=== PATIENT | male | born 1955 | race African-American/Black ===

== ENCOUNTER 2020-03-04 11:38 | Inpatient (IN) ==
[2020-03-04] MEDS ORDERED: SODIUM CHLORIDE 0.9% 1,000 ML IV STA (12:51)
[2020-03-04] MEDS ORDERED: ONDANSETRON 4 MG/2 ML VIAL IV STA (12:51)
[2020-03-04 13:42] LABS: Basophils # 0.1 10*3/uL (0.0-0.2); Basophils % 0.9 % (0.0-0.8); Hematocrit 47.8 VOL% (42.0-52.0); Hemoglobin 16.9 GM/DL (14.0-18.0); Immature Granulocytes % 0.7 %; Immature Granulocytes Absolute 0.09 #; Lymphocytes # 0.8 10*3/uL (1.4-4.0); Lymphocytes % 6.4 % (21.2-54.2); Mean Corpuscular HGB Conc 35.4 GM/DL (32-36); Mean Corpuscular Volume 88.8 FL (87-102); Mean Platelet Volume 11.7 FL (9.6-12.0); Monocytes % 3.8 % (1.7-12.7); Neutrophils % 88.2 % (38.7-73.9); Platelet Count 129 T/CUMM (130-400); Red Blood Count 5.38 MC/CUMM (3.8-5.5); Red Cell Distribution Width 13.6 % (9.3-17.3); White Blood Count 13.2 T/CUMM (4-12)
[2020-03-04] MEDS ORDERED: LEVOFLOXACIN INJ 500 MG in PREMIX 1 EACH IV STA (14:10)
[2020-03-04] MEDS ORDERED: DEXAMETHASONE 4 MG/1 ML VIAL IV STA (14:10)
[2020-03-04 14:35] LABS: Albumin 2.7 G/DL (3.4-5.0); Bilirubin,Total 1.8 MG/DL (0.2-1.0); Ferritin 3543.2 ng/ml (26-388); Osmolality,Calculated 257.2 MOS/KG (273-304); Total Protein 8.4 G/DL (6.4-8.3)
[2020-03-04] MEDS ORDERED: GLUCAGON 1 MG VIAL IM PRN ×2 (15:32→16:14)
[2020-03-04] MEDS ORDERED: DEXTROSE 50% 25 GM/50 ML VIAL IV PRN ×2 (15:32→16:14)
[2020-03-04] MEDS ORDERED: ACETAMINOPHEN 325 MG TABLET PO PRN (16:14)
[2020-03-04] MEDS ORDERED: INFLUENZA VIRUS VACCINE 0.5 ML SYRINGE IM ONE (17:43)
[2020-03-04] MEDS: SODIUM CHLORIDE 0.9% 1,000 ML IV SCH (18:09)
[2020-03-04] MEDS: ENOXAPARIN 100 MG/ML SYRINGE SUBCUT SCH (18:09)
[2020-03-04] MEDS: AZITHROMYCIN INJ 500 MG in SODIUM CHLORIDE 0.9% 250 ML IV SCH (21:56)
[2020-03-04] MEDS: cefTRIAXone 1,000 MG in SYRINGE 1 EACH IV SCH (21:56)
[2020-03-05] MEDS: SODIUM CHLORIDE 0.9% 1,000 ML IV SCH ×3 (02:41→22:22)
[2020-03-05] MEDS: ENOXAPARIN 100 MG/ML SYRINGE SUBCUT SCH ×2 (04:05→16:10)
[2020-03-05 05:49] LABS: Basophils % 0.1 % (0.0-0.8); Hematocrit 44.9 VOL% (42.0-52.0); Hemoglobin 15.5 GM/DL (14.0-18.0); Immature Granulocytes % 0.8 %; Immature Granulocytes Absolute 0.11 #; Lymphocytes # 0.8 10*3/uL (1.4-4.0); Lymphocytes % 5.4 % (21.2-54.2); Mean Corpuscular HGB Conc 34.5 GM/DL (32-36); Mean Corpuscular Volume 88.7 FL (87-102); Mean Platelet Volume 10.7 FL (9.6-12.0); Neutrophils % 90.7 % (38.7-73.9); Platelet Count 211 T/CUMM (130-400); Red Blood Count 5.06 MC/CUMM (3.8-5.5); Red Cell Distribution Width 13.3 % (9.3-17.3); White Blood Count 13.9 T/CUMM (4-12)
[2020-03-05 06:22] LABS: Lymphocytes 3 % (20-55); Platelet Estimate Adequate; Segmented Neutrophils 95 % (50-85); Total Cells Counted 100
[2020-03-05 06:24] LABS: Calcium 8.5 MG/DL (8.5-10.1); Osmolality,Calculated 274.8 MOS/KG (273-304)
[2020-03-05] MEDS: DEXAMETHASONE 4 MG/1 ML VIAL IV SCH (08:40)
[2020-03-05] MEDS ORDERED: LEVOFLOXACIN INJ 500 MG in PREMIX 1 EACH IV SCH (17:00)
[2020-03-05] MEDS ORDERED: chlorproMAZINE 25 MG TABLET PO PRN (19:30)
[2020-03-05] MEDS: cefTRIAXone 1,000 MG in SYRINGE 1 EACH IV SCH (20:50)
[2020-03-05] MEDS: PHENOL 1.4% THROAT SPRAY 177 ML BOTTLE PO PRN (20:51)
[2020-03-05] MEDS: AZITHROMYCIN INJ 500 MG in SODIUM CHLORIDE 0.9% 250 ML IV SCH (20:51)
[2020-03-06] MEDS: ENOXAPARIN 100 MG/ML SYRINGE SUBCUT SCH ×2 (05:18→16:34)
[2020-03-06 06:13] LABS: Basophils % 0.1 % (0.0-0.8); Hematocrit 45.5 VOL% (42.0-52.0); Hemoglobin 15.6 GM/DL (14.0-18.0); Immature Granulocytes % 1.1 %; Immature Granulocytes Absolute 0.17 #; Lymphocytes # 0.9 10*3/uL (1.4-4.0); Lymphocytes % 6.2 % (21.2-54.2); Mean Corpuscular HGB Conc 34.3 GM/DL (32-36); Mean Corpuscular Volume 90.6 FL (87-102); Mean Platelet Volume 10.4 FL (9.6-12.0); Monocytes % 2.7 % (1.7-12.7); Neutrophils % 89.9 % (38.7-73.9); Platelet Count 238 T/CUMM (130-400); Red Blood Count 5.02 MC/CUMM (3.8-5.5); Red Cell Distribution Width 13.8 % (9.3-17.3); White Blood Count 14.8 T/CUMM (4-12)
[2020-03-06 06:41] LABS: Calcium 7.7 MG/DL (8.5-10.1); Osmolality,Calculated 270.1 MOS/KG (273-304)
[2020-03-06] MEDS ORDERED: REMDESIVIR 200 MG in SODIUM CHLORIDE 0.9% 210 ML IV ONE (09:00)
[2020-03-06] MEDS: DEXAMETHASONE 4 MG/1 ML VIAL IV SCH (09:07)
[2020-03-06] MEDS: SODIUM CHLORIDE 0.9% 1,000 ML IV SCH (09:08)
[2020-03-06] MEDS ORDERED: SODIUM CHLORIDE 0.9% 1,000 ML IV PRN (12:16)
[2020-03-06] MEDS: cefTRIAXone 1,000 MG in SYRINGE 1 EACH IV SCH (21:05)
[2020-03-06] MEDS: AZITHROMYCIN INJ 500 MG in SODIUM CHLORIDE 0.9% 250 ML IV SCH (21:07)
[2020-03-07] MEDS: ENOXAPARIN 100 MG/ML SYRINGE SUBCUT SCH ×2 (05:14→16:23)
[2020-03-07 06:09] LABS: Basophils % 0.3 % (0.0-0.8); Hematocrit 48.7 VOL% (42.0-52.0); Immature Granulocytes % 1.1 %; Immature Granulocytes Absolute 0.11 #; Lymphocytes # 0.9 10*3/uL (1.4-4.0); Mean Corpuscular HGB Conc 34.9 GM/DL (32-36); Mean Corpuscular Volume 88.1 FL (87-102); Mean Platelet Volume 10.7 FL (9.6-12.0); Monocytes % 2.8 % (1.7-12.7); Neutrophils % 86.8 % (38.7-73.9); Platelet Count 247 T/CUMM (130-400); Red Blood Count 5.53 MC/CUMM (3.8-5.5); Red Cell Distribution Width 13.4 % (9.3-17.3)
[2020-03-07 07:04] LABS: Calcium 8.8 MG/DL (8.5-10.1); Osmolality,Calculated 268.1 MOS/KG (273-304)
[2020-03-07 07:06] LABS: Ferritin 2324.6 ng/ml (26-388)
[2020-03-07 08:06] LABS: Pt O2 Delivery Device Other
[2020-03-07 08:07] LABS: ABG Oxygen Saturation 96.5 % (95-100); ABG PCO2 33.1 MM HG (35-48); ABG PH 7.496 (7.35-7.45); ABG PO2 85.7 MM HG (80-95); ABG TCO2 21.2 MMOL/L (23-27)
[2020-03-07] MEDS: DEXAMETHASONE 4 MG/1 ML VIAL IV SCH (09:19)
[2020-03-07] MEDS: REMDESIVIR 100 MG in SODIUM CHLORIDE 0.9% 230 ML IV SCH (09:19)
[2020-03-07] MEDS: amLODIPine 10 MG TABLET PO SCH (13:30)
[2020-03-07] MEDS: chlorproMAZINE 25 MG TABLET PO PRN (20:36)
[2020-03-07] MEDS: FAMOTIDINE 20 MG TABLET PO SCH (20:36)
[2020-03-07] MEDS: cefTRIAXone 1,000 MG in SYRINGE 1 EACH IV SCH (20:37)
[2020-03-07] MEDS: ASCORBIC ACID 500 MG TABLET PO SCH (20:38)
[2020-03-07] MEDS: AZITHROMYCIN INJ 500 MG in SODIUM CHLORIDE 0.9% 250 ML IV SCH (20:38)
[2020-03-08 03:56] LABS: Basophils % 0.3 % (0.0-0.8); Hematocrit 40.5 VOL% (42.0-52.0); Hemoglobin 14.5 GM/DL (14.0-18.0); Immature Granulocytes % 0.9 %; Immature Granulocytes Absolute 0.07 #; Lymphocytes # 0.9 10*3/uL (1.4-4.0); Lymphocytes % 11.5 % (21.2-54.2); Mean Corpuscular HGB Conc 35.8 GM/DL (32-36); Mean Corpuscular Volume 85.4 FL (87-102); Mean Platelet Volume 10.3 FL (9.6-12.0); Monocytes % 3.4 % (1.7-12.7); Neutrophils % 83.9 % (38.7-73.9); Platelet Count 290 T/CUMM (130-400); Red Blood Count 4.74 MC/CUMM (3.8-5.5); Red Cell Distribution Width 13.2 % (9.3-17.3); White Blood Count 7.4 T/CUMM (4-12)
[2020-03-08] MEDS: ENOXAPARIN 100 MG/ML SYRINGE SUBCUT SCH ×2 (04:11→17:05)
[2020-03-08 04:12] LABS: Osmolality,Calculated 277.7 MOS/KG (273-304)
[2020-03-08 04:16] LABS: Ferritin 1847.1 ng/ml (26-388)
[2020-03-08] MEDS: DEXAMETHASONE 4 MG/1 ML VIAL IV SCH (08:22)
[2020-03-08] MEDS: FAMOTIDINE 20 MG TABLET PO SCH ×2 (08:23→20:14)
[2020-03-08] MEDS: CHOLECALCIFEROL 1,000 UNIT TABLET PO SCH (08:23)
[2020-03-08] MEDS: amLODIPine 10 MG TABLET PO SCH (08:23)
[2020-03-08] MEDS: ASCORBIC ACID 500 MG TABLET PO SCH ×2 (08:23→20:11)
[2020-03-08] MEDS: CETIRIZINE 10 MG TABLET PO SCH (08:24)
[2020-03-08] MEDS: ZINC GLUCONATE 50 MG TABLET PO SCH (08:24)
[2020-03-08] MEDS: POTASSIUM CHLORIDE 20 MEQ TABLET PO SCH ×4 (10:39→20:11)
[2020-03-08] MEDS: REMDESIVIR 100 MG in SODIUM CHLORIDE 0.9% 230 ML IV SCH (10:47)
[2020-03-08] MEDS: cefTRIAXone 1,000 MG in SYRINGE 1 EACH IV SCH (20:10)
[2020-03-08] MEDS: AZITHROMYCIN INJ 500 MG in SODIUM CHLORIDE 0.9% 250 ML IV SCH (20:13)
[2020-03-09] MEDS: ENOXAPARIN 100 MG/ML SYRINGE SUBCUT SCH (03:32)
[2020-03-09 03:55] LABS: Basophils % 0.2 % (0.0-0.8); Eosinophils % 0.1 % (0.00-10.9); Hematocrit 41.3 VOL% (42.0-52.0); Hemoglobin 14.5 GM/DL (14.0-18.0); Immature Granulocytes % 1.2 %; Immature Granulocytes Absolute 0.11 #; Lymphocytes # 0.9 10*3/uL (1.4-4.0); Mean Corpuscular HGB Conc 35.1 GM/DL (32-36); Mean Corpuscular Volume 86.2 FL (87-102); Mean Platelet Volume 9.9 FL (9.6-12.0); Monocytes % 3.1 % (1.7-12.7); Neutrophils % 86.4 % (38.7-73.9); Platelet Count 305 T/CUMM (130-400); Red Blood Count 4.79 MC/CUMM (3.8-5.5); Red Cell Distribution Width 13.4 % (9.3-17.3); White Blood Count 9.5 T/CUMM (4-12)
[2020-03-09 04:30] LABS: Osmolality,Calculated 278.5 MOS/KG (273-304)
[2020-03-09] MEDS: ZINC GLUCONATE 50 MG TABLET PO SCH (08:13)
[2020-03-09] MEDS: FAMOTIDINE 20 MG TABLET PO SCH ×2 (08:13→20:14)
[2020-03-09] MEDS: amLODIPine 10 MG TABLET PO SCH (08:14)
[2020-03-09] MEDS: ASCORBIC ACID 500 MG TABLET PO SCH ×2 (08:14→20:14)
[2020-03-09] MEDS: CETIRIZINE 10 MG TABLET PO SCH (08:14)
[2020-03-09] MEDS: CHOLECALCIFEROL 1,000 UNIT TABLET PO SCH (08:15)
[2020-03-09] MEDS: DEXAMETHASONE 4 MG/1 ML VIAL IV SCH (08:15)
[2020-03-09] MEDS: REMDESIVIR 100 MG in SODIUM CHLORIDE 0.9% 230 ML IV SCH (09:44)
[2020-03-09] MEDS: ENOXAPARIN 60 MG/0.6 ML SYRINGE SUBCUT SCH (17:15)
[2020-03-09] MEDS: cefTRIAXone 1,000 MG in SYRINGE 1 EACH IV SCH (20:14)
[2020-03-10 03:32] LABS: Basophils % 0.3 % (0.0-0.8); Eosinophils % 0.5 % (0.00-10.9); Hematocrit 43.4 VOL% (42.0-52.0); Hemoglobin 15.1 GM/DL (14.0-18.0); Immature Granulocytes % 1.9 %; Immature Granulocytes Absolute 0.15 #; Lymphocytes # 0.9 10*3/uL (1.4-4.0); Mean Corpuscular HGB Conc 34.8 GM/DL (32-36); Mean Corpuscular Volume 86.8 FL (87-102); Mean Platelet Volume 9.6 FL (9.6-12.0); Neutrophils % 83.3 % (38.7-73.9); Platelet Count 332 T/CUMM (130-400); Red Cell Distribution Width 13.5 % (9.3-17.3)
[2020-03-10 03:55] LABS: Calcium 8.6 MG/DL (8.5-10.1); Osmolality,Calculated 273.8 MOS/KG (273-304)
[2020-03-10] MEDS: ENOXAPARIN 60 MG/0.6 ML SYRINGE SUBCUT SCH ×2 (04:09→16:24)
[2020-03-10] MEDS: chlorproMAZINE 25 MG TABLET PO PRN (04:28)
[2020-03-10] MEDS: DEXAMETHASONE 4 MG/1 ML VIAL IV SCH (08:00)
[2020-03-10] MEDS: FAMOTIDINE 20 MG TABLET PO SCH ×2 (08:00→20:08)
[2020-03-10] MEDS: CHOLECALCIFEROL 1,000 UNIT TABLET PO SCH (08:00)
[2020-03-10] MEDS: ZINC GLUCONATE 50 MG TABLET PO SCH (08:00)
[2020-03-10] MEDS: ASCORBIC ACID 500 MG TABLET PO SCH ×2 (08:00→20:08)
[2020-03-10] MEDS: amLODIPine 10 MG TABLET PO SCH (08:00)
[2020-03-10] MEDS: CETIRIZINE 10 MG TABLET PO SCH (08:34)
[2020-03-10] MEDS: REMDESIVIR 100 MG in SODIUM CHLORIDE 0.9% 230 ML IV SCH (09:20)
[2020-03-10] MEDS: POLYETHYLENE GLYCOL POWDER 17 GM PACK PO SCH (10:40)
[2020-03-10] MEDS ORDERED: LORazepam 2 MG/1 ML VIAL IV ONE (14:01)
[2020-03-10 14:33] LABS: ABG Base Excess -0.1 MMOL/L (-2.5-2.5); ABG HCO3 21.1 MMOL/L (20-26); ABG Oxygen Saturation 96.3 % (95-100); ABG PCO2 26.7 MM HG (35-48); ABG PH 7.515 (7.35-7.45); ABG PO2 82.1 MM HG (80-95); ABG TCO2 21.9 MMOL/L (23-27)
[2020-03-10] MEDS: LORazepam 2 MG/1 ML VIAL IV PRN (17:01)
[2020-03-10] MEDS: cefTRIAXone 1,000 MG in SYRINGE 1 EACH IV SCH (20:28)
[2020-03-11 04:13] LABS: Allen Test Positive; Pt O2 Delivery Device Other
[2020-03-11 04:17] LABS: ABG Base Excess 1.6 MMOL/L (-2.5-2.5); ABG HCO3 25.7 MMOL/L (20-26); ABG Oxygen Saturation 95.6 % (95-100); ABG PCO2 31.5 MM HG (35-48); ABG TCO2 20.3 MMOL/L (23-27)
[2020-03-11 04:40] LABS: Basophils % 0.3 % (0.0-0.8); Eosinophils % 0.2 % (0.00-10.9); Hematocrit 46.4 VOL% (42.0-52.0); Hemoglobin 16.2 GM/DL (14.0-18.0); Immature Granulocytes % 1.2 %; Immature Granulocytes Absolute 0.16 #; Lymphocytes % 7.7 % (21.2-54.2); Mean Corpuscular HGB Conc 34.9 GM/DL (32-36); Mean Corpuscular Volume 86.9 FL (87-102); Mean Platelet Volume 9.6 FL (9.6-12.0); Monocytes % 3.3 % (1.7-12.7); Neutrophils % 87.3 % (38.7-73.9); Platelet Count 330 T/CUMM (130-400); Red Blood Count 5.34 MC/CUMM (3.8-5.5); Red Cell Distribution Width 13.7 % (9.3-17.3); White Blood Count 12.9 T/CUMM (4-12)
[2020-03-11 04:58] LABS: Ferritin 1394.3 ng/ml (26-388)
[2020-03-11] MEDS: ENOXAPARIN 60 MG/0.6 ML SYRINGE SUBCUT SCH (05:11)
[2020-03-11] MEDS: FAMOTIDINE 20 MG TABLET PO SCH ×2 (08:41→20:11)
[2020-03-11] MEDS: ZINC GLUCONATE 50 MG TABLET PO SCH (08:41)
[2020-03-11] MEDS: DEXAMETHASONE 4 MG/1 ML VIAL IV SCH (08:41)
[2020-03-11] MEDS: ASCORBIC ACID 500 MG TABLET PO SCH ×2 (08:41→20:11)
[2020-03-11] MEDS: CHOLECALCIFEROL 1,000 UNIT TABLET PO SCH (08:41)
[2020-03-11] MEDS: amLODIPine 10 MG TABLET PO SCH (08:41)
[2020-03-11] MEDS: POLYETHYLENE GLYCOL POWDER 17 GM PACK PO SCH (08:41)
[2020-03-11] MEDS: CETIRIZINE 10 MG TABLET PO SCH (08:41)
[2020-03-11] MEDS ORDERED: LORazepam 2 MG/1 ML VIAL ONE (09:39)
[2020-03-11] MEDS: LORazepam 2 MG/1 ML VIAL IV PRN (09:41)
[2020-03-11] MEDS ORDERED: LORazepam 2 MG/1 ML VIAL IV PRN (10:24)
[2020-03-11] MEDS: ENOXAPARIN 100 MG/ML SYRINGE SUBCUT SCH (17:55)
[2020-03-11] MEDS ORDERED: HALOPERIDOL 5 MG/ML AMP IM PRN (18:11)
[2020-03-12 04:06] LABS: Basophils % 0.1 % (0.0-0.8); Hematocrit 43.8 VOL% (42.0-52.0); Hemoglobin 15.4 GM/DL (14.0-18.0); Immature Granulocytes % 1.2 %; Lymphocytes % 5.8 % (21.2-54.2); Mean Corpuscular HGB Conc 35.2 GM/DL (32-36); Mean Corpuscular Volume 86.9 FL (87-102); Mean Platelet Volume 9.2 FL (9.6-12.0); Monocytes % 3.6 % (1.7-12.7); Neutrophils % 89.3 % (38.7-73.9); Platelet Count 276 T/CUMM (130-400); Red Blood Count 5.04 MC/CUMM (3.8-5.5); Red Cell Distribution Width 13.6 % (9.3-17.3); White Blood Count 16.4 T/CUMM (4-12)
[2020-03-12 04:24] LABS: Calcium 8.2 MG/DL (8.5-10.1); Calcium 8.7 MG/DL (8.5-10.1); Osmolality,Calculated 272.1 MOS/KG (273-304); Osmolality,Calculated 274.8 MOS/KG (273-304)
[2020-03-12 04:43] LABS: ABG Base Excess 1.6 MMOL/L (-2.5-2.5); ABG HCO3 25.6 MMOL/L (20-26); ABG Oxygen Saturation 92.7 % (95-100); ABG PCO2 33.8 MM HG (35-48); ABG PH 7.469 (7.35-7.45); ABG PO2 67.8 MM HG (80-95); ABG TCO2 20.7 MMOL/L (23-27); Allen Test Positive; Pt O2 Delivery Device Other
[2020-03-12] MEDS: ENOXAPARIN 100 MG/ML SYRINGE SUBCUT SCH ×2 (06:31→17:09)
[2020-03-12] MEDS: CHOLECALCIFEROL 1,000 UNIT TABLET PO SCH (08:14)
[2020-03-12] MEDS: POLYETHYLENE GLYCOL POWDER 17 GM PACK PO SCH (08:14)
[2020-03-12] MEDS: ZINC GLUCONATE 50 MG TABLET PO SCH (08:15)
[2020-03-12] MEDS: CETIRIZINE 10 MG TABLET PO SCH (08:15)
[2020-03-12] MEDS: FAMOTIDINE 20 MG TABLET PO SCH ×2 (08:15→21:05)
[2020-03-12] MEDS: amLODIPine 10 MG TABLET PO SCH (08:15)
[2020-03-12] MEDS: ASCORBIC ACID 500 MG TABLET PO SCH ×2 (08:15→21:05)
[2020-03-12] MEDS: DEXAMETHASONE 4 MG/1 ML VIAL IV SCH (08:17)
[2020-03-13 04:13] LABS: ABG Base Excess 0.8 MMOL/L (-2.5-2.5); ABG HCO3 23.8 MMOL/L (20-26); ABG Oxygen Saturation 96.4 % (95-100); ABG PCO2 33.8 MM HG (35-48); ABG PH 7.466 (7.35-7.45); ABG PO2 85.1 MM HG (80-95); ABG TCO2 24.9 MMOL/L (23-27)
[2020-03-13] MEDS: ENOXAPARIN 100 MG/ML SYRINGE SUBCUT SCH ×2 (05:55→18:35)
[2020-03-13 05:57] LABS: Basophils % 0.2 % (0.0-0.8); Hematocrit 44.2 VOL% (42.0-52.0); Hemoglobin 15.5 GM/DL (14.0-18.0); Immature Granulocytes Absolute 0.18 #; Lymphocytes # 1.2 10*3/uL (1.4-4.0); Lymphocytes % 6.9 % (21.2-54.2); Mean Corpuscular HGB Conc 35.1 GM/DL (32-36); Mean Corpuscular Volume 87.2 FL (87-102); Mean Platelet Volume 9.4 FL (9.6-12.0); Monocytes % 5.3 % (1.7-12.7); Neutrophils % 86.6 % (38.7-73.9); Platelet Count 247 T/CUMM (130-400); Red Blood Count 5.07 MC/CUMM (3.8-5.5); Red Cell Distribution Width 13.9 % (9.3-17.3); White Blood Count 17.3 T/CUMM (4-12)
[2020-03-13 06:17] LABS: Calcium 8.9 MG/DL (8.5-10.1); Osmolality,Calculated 267.4 MOS/KG (273-304)
[2020-03-13] MEDS: DEXAMETHASONE 4 MG/1 ML VIAL IV SCH (08:20)
[2020-03-13] MEDS: POLYETHYLENE GLYCOL POWDER 17 GM PACK PO SCH ×2 (08:20→20:07)
[2020-03-13] MEDS: CHOLECALCIFEROL 1,000 UNIT TABLET PO SCH (08:20)
[2020-03-13] MEDS: ZINC GLUCONATE 50 MG TABLET PO SCH (08:20)
[2020-03-13] MEDS: CETIRIZINE 10 MG TABLET PO SCH (08:20)
[2020-03-13] MEDS: amLODIPine 10 MG TABLET PO SCH (08:20)
[2020-03-13] MEDS: ASCORBIC ACID 500 MG TABLET PO SCH ×2 (08:20→20:07)
[2020-03-13] MEDS: FAMOTIDINE 20 MG TABLET PO SCH ×2 (08:20→20:07)
[2020-03-14 05:42] LABS: Basophils % 0.2 % (0.0-0.8); Hematocrit 45.4 VOL% (42.0-52.0); Hemoglobin 15.7 GM/DL (14.0-18.0); Immature Granulocytes % 0.7 %; Immature Granulocytes Absolute 0.11 #; Lymphocytes # 1.5 10*3/uL (1.4-4.0); Lymphocytes % 9.5 % (21.2-54.2); Mean Corpuscular HGB Conc 34.6 GM/DL (32-36); Mean Corpuscular Volume 88.7 FL (87-102); Mean Platelet Volume 9.3 FL (9.6-12.0); Neutrophils % 83.6 % (38.7-73.9); Platelet Count 216 T/CUMM (130-400); Red Blood Count 5.12 MC/CUMM (3.8-5.5); Red Cell Distribution Width 13.9 % (9.3-17.3); White Blood Count 15.3 T/CUMM (4-12)
[2020-03-14 05:58] LABS: Ferritin 1181.2 ng/ml (26-388); Osmolality,Calculated 266.4 MOS/KG (273-304)
[2020-03-14] MEDS: ENOXAPARIN 100 MG/ML SYRINGE SUBCUT SCH (06:04)
[2020-03-14] MEDS: POLYETHYLENE GLYCOL POWDER 17 GM PACK PO SCH ×2 (08:50→20:20)
[2020-03-14] MEDS: DEXAMETHASONE 4 MG/1 ML VIAL IV SCH (08:50)
[2020-03-14] MEDS: ZINC GLUCONATE 50 MG TABLET PO SCH (08:51)
[2020-03-14] MEDS: amLODIPine 10 MG TABLET PO SCH (08:51)
[2020-03-14] MEDS: CETIRIZINE 10 MG TABLET PO SCH (08:51)
[2020-03-14] MEDS: FAMOTIDINE 20 MG TABLET PO SCH ×2 (08:51→20:20)
[2020-03-14] MEDS: CHOLECALCIFEROL 1,000 UNIT TABLET PO SCH (08:51)
[2020-03-14] MEDS: ASCORBIC ACID 500 MG TABLET PO SCH ×2 (08:51→20:20)
[2020-03-14] MEDS: ENOXAPARIN 60 MG/0.6 ML SYRINGE SUBCUT SCH ×2 (11:01→23:03)
[2020-03-14] MEDS: PHENOL 1.4% THROAT SPRAY 177 ML BOTTLE PO PRN (20:20)
[2020-03-15 04:15] LABS: Basophils % 0.1 % (0.0-0.8); Hematocrit 45.7 VOL% (42.0-52.0); Immature Granulocytes % 0.9 %; Immature Granulocytes Absolute 0.15 #; Lymphocytes # 1.6 10*3/uL (1.4-4.0); Lymphocytes % 9.6 % (21.2-54.2); Mean Corpuscular Volume 88.4 FL (87-102); Mean Platelet Volume 10.1 FL (9.6-12.0); Neutrophils % 83.4 % (38.7-73.9); Platelet Count 207 T/CUMM (130-400); Red Blood Count 5.17 MC/CUMM (3.8-5.5); Red Cell Distribution Width 13.5 % (9.3-17.3); White Blood Count 16.1 T/CUMM (4-12)
[2020-03-15 04:45] LABS: Calcium 9.2 MG/DL (8.5-10.1); Osmolality,Calculated 268.2 MOS/KG (273-304)
[2020-03-15] MEDS: DEXAMETHASONE 4 MG/1 ML VIAL IV SCH (09:20)
[2020-03-15] MEDS: amLODIPine 10 MG TABLET PO SCH (09:23)
[2020-03-15] MEDS: POLYETHYLENE GLYCOL POWDER 17 GM PACK PO SCH ×2 (09:23→20:45)
[2020-03-15] MEDS: ASCORBIC ACID 500 MG TABLET PO SCH ×2 (09:23→20:45)
[2020-03-15] MEDS: FAMOTIDINE 20 MG TABLET PO SCH ×2 (09:23→20:45)
[2020-03-15] MEDS: CETIRIZINE 10 MG TABLET PO SCH (09:23)
[2020-03-15] MEDS: ZINC GLUCONATE 50 MG TABLET PO SCH (09:23)
[2020-03-15] MEDS: CHOLECALCIFEROL 1,000 UNIT TABLET PO SCH (09:23)
[2020-03-15] MEDS: ENOXAPARIN 60 MG/0.6 ML SYRINGE SUBCUT SCH ×2 (11:59→23:16)
[2020-03-16 06:43] LABS: ABG Base Excess 3.7 MMOL/L (-2.5-2.5); ABG HCO3 27.6 MMOL/L (20-26); ABG Oxygen Saturation 96.8 % (95-100); ABG PCO2 38.9 MM HG (35-48); ABG PH 7.459 (7.35-7.45); ABG PO2 92.7 MM HG (80-95); Allen Test Positive; Pt O2 Delivery Device Other
[2020-03-16] MEDS: ASCORBIC ACID 500 MG TABLET PO SCH ×2 (08:45→21:18)
[2020-03-16] MEDS: DEXAMETHASONE 4 MG/1 ML VIAL IV SCH (08:45)
[2020-03-16] MEDS: POLYETHYLENE GLYCOL POWDER 17 GM PACK PO SCH ×2 (08:45→21:17)
[2020-03-16] MEDS: FAMOTIDINE 20 MG TABLET PO SCH ×2 (08:45→21:18)
[2020-03-16] MEDS: amLODIPine 10 MG TABLET PO SCH (08:46)
[2020-03-16] MEDS: ZINC GLUCONATE 50 MG TABLET PO SCH (08:46)
[2020-03-16] MEDS: CETIRIZINE 10 MG TABLET PO SCH (08:46)
[2020-03-16] MEDS: CHOLECALCIFEROL 1,000 UNIT TABLET PO SCH (08:46)
[2020-03-16 09:20] LABS: Ferritin 1272.7 ng/ml (26-388)
[2020-03-16] MEDS: ENOXAPARIN 60 MG/0.6 ML SYRINGE SUBCUT SCH ×2 (10:42→22:28)
[2020-03-16] MEDS ORDERED: LORazepam 2 MG/1 ML VIAL IV ONE (13:49)
[2020-03-16] MEDS: busPIRone 5 MG TABLET PO SCH ×2 (15:44→21:17)
[2020-03-16] MEDS: MELATONIN 3 MG TABLET PO SCH (21:17)
[2020-03-17 03:40] LABS: Basophils % 0.1 % (0.0-0.8); Eosinophils % 0.1 % (0.00-10.9); Hematocrit 48.5 VOL% (42.0-52.0); Hemoglobin 16.8 GM/DL (14.0-18.0); Immature Granulocytes % 0.8 %; Immature Granulocytes Absolute 0.11 #; Lymphocytes # 1.7 10*3/uL (1.4-4.0); Lymphocytes % 11.7 % (21.2-54.2); Mean Corpuscular HGB Conc 34.6 GM/DL (32-36); Mean Corpuscular Volume 89.2 FL (87-102); Mean Platelet Volume 10.1 FL (9.6-12.0); Monocytes % 7.9 % (1.7-12.7); Neutrophils % 79.4 % (38.7-73.9); Platelet Count 191 T/CUMM (130-400); Red Blood Count 5.44 MC/CUMM (3.8-5.5); Red Cell Distribution Width 13.9 % (9.3-17.3); White Blood Count 14.4 T/CUMM (4-12)
[2020-03-17 04:15] LABS: Albumin 2.5 G/DL (3.4-5.0); Bilirubin,Total 0.7 MG/DL (0.2-1.0); Calcium 9.3 MG/DL (8.5-10.1); Ferritin 1428.7 ng/ml (26-388); Osmolality,Calculated 269.2 MOS/KG (273-304); Total Protein 7.5 G/DL (6.4-8.3)
[2020-03-17 05:53] LABS: Sedimentation Rate-Westergren 26 MM/HR (0-20)
[2020-03-17] MEDS: FAMOTIDINE 20 MG TABLET PO SCH ×2 (08:40→21:49)
[2020-03-17] MEDS: ASCORBIC ACID 500 MG TABLET PO SCH ×2 (08:40→21:50)
[2020-03-17] MEDS: ZINC GLUCONATE 50 MG TABLET PO SCH (08:40)
[2020-03-17] MEDS: CHOLECALCIFEROL 1,000 UNIT TABLET PO SCH (08:40)
[2020-03-17] MEDS: DEXAMETHASONE 4 MG/1 ML VIAL IV SCH (08:41)
[2020-03-17] MEDS: amLODIPine 10 MG TABLET PO SCH (08:41)
[2020-03-17] MEDS: CETIRIZINE 10 MG TABLET PO SCH (08:42)
[2020-03-17] MEDS: busPIRone 5 MG TABLET PO SCH ×3 (08:42→21:49)
[2020-03-17] MEDS: POLYETHYLENE GLYCOL POWDER 17 GM PACK PO SCH ×2 (10:12→21:49)
[2020-03-17] MEDS: ENOXAPARIN 60 MG/0.6 ML SYRINGE SUBCUT SCH (10:29)
[2020-03-17] MEDS ORDERED: INFLUENZA VIRUS VACCINE 0.5 ML SYRINGE IM ONE (12:00)
[2020-03-17] MEDS: MELATONIN 3 MG TABLET PO SCH (21:49)
[2020-03-18] MEDS: ONDANSETRON 4 MG/2 ML VIAL IV PRN ×2 (00:41→09:17)
[2020-03-18 03:50] LABS: Basophils % 0.1 % (0.0-0.8); Eosinophils % 0.1 % (0.00-10.9); Hematocrit 43.3 VOL% (42.0-52.0); Hemoglobin 14.9 GM/DL (14.0-18.0); Immature Granulocytes % 0.7 %; Immature Granulocytes Absolute 0.11 #; Lymphocytes # 1.7 10*3/uL (1.4-4.0); Lymphocytes % 11.6 % (21.2-54.2); Mean Corpuscular HGB Conc 34.4 GM/DL (32-36); Mean Corpuscular Volume 88.9 FL (87-102); Mean Platelet Volume 10.3 FL (9.6-12.0); Monocytes % 6.5 % (1.7-12.7); Platelet Count 191 T/CUMM (130-400); Red Blood Count 4.87 MC/CUMM (3.8-5.5); Red Cell Distribution Width 13.7 % (9.3-17.3); White Blood Count 14.7 T/CUMM (4-12)
[2020-03-18 03:55] LABS: ABG Base Excess 5.3 MMOL/L (-2.5-2.5); ABG HCO3 29.1 MMOL/L (20-26); ABG Oxygen Saturation 97.1 % (95-100); ABG PCO2 44.1 MM HG (35-48); ABG PH 7.443 (7.35-7.45); ABG PO2 95.3 MM HG (80-95); ABG TCO2 25.5 MMOL/L (23-27)
[2020-03-18 04:21] LABS: Albumin 2.3 G/DL (3.4-5.0); Bilirubin,Total 1.2 MG/DL (0.2-1.0); Calcium 9.2 MG/DL (8.5-10.1); Ferritin 1196.3 ng/ml (26-388); Osmolality,Calculated 267.2 MOS/KG (273-304); Total Protein 6.9 G/DL (6.4-8.3)
[2020-03-18 05:24] LABS: Sedimentation Rate-Westergren 53 MM/HR (0-20)
[2020-03-18] MEDS ORDERED: MAGNESIUM HYDROXIDE SUSP 30 ML UDCUP PO ONE (07:33)
[2020-03-18] MEDS ORDERED: BISACODYL 5 MG TABLET PO ONE (07:33)
[2020-03-18] MEDS ORDERED: MAGNESIUM CITRATE 300 ML BOTTLE PO ONE (07:33)
[2020-03-18] MEDS: POLYETHYLENE GLYCOL POWDER 17 GM PACK PO SCH ×2 (09:15→21:06)
[2020-03-18] MEDS: FAMOTIDINE 20 MG TABLET PO SCH ×2 (09:15→21:06)
[2020-03-18] MEDS: CHOLECALCIFEROL 1,000 UNIT TABLET PO SCH (09:16)
[2020-03-18] MEDS: amLODIPine 10 MG TABLET PO SCH (09:16)
[2020-03-18] MEDS: ZINC GLUCONATE 50 MG TABLET PO SCH (09:16)
[2020-03-18] MEDS: ASCORBIC ACID 500 MG TABLET PO SCH ×2 (09:16→21:06)
[2020-03-18] MEDS: CETIRIZINE 10 MG TABLET PO SCH (09:16)
[2020-03-18] MEDS: busPIRone 5 MG TABLET PO SCH ×3 (09:16→21:05)
[2020-03-18] MEDS: DEXAMETHASONE 4 MG/1 ML VIAL IV SCH (09:17)
[2020-03-18] MEDS: ENOXAPARIN 60 MG/0.6 ML SYRINGE SUBCUT SCH ×3 (10:45→23:09)
[2020-03-18] MEDS ORDERED: SODIUM PHOSPHATE ENEMA 133 ML BOTTLE RECTAL ONE (21:00)
[2020-03-18] MEDS: MELATONIN 3 MG TABLET PO SCH (21:21)
[2020-03-19 05:39] LABS: Basophils % 0.1 % (0.0-0.8); Eosinophils % 0.2 % (0.00-10.9); Hematocrit 46.8 VOL% (42.0-52.0); Immature Granulocytes % 0.8 %; Immature Granulocytes Absolute 0.09 #; Lymphocytes # 1.7 10*3/uL (1.4-4.0); Lymphocytes % 13.9 % (21.2-54.2); Mean Corpuscular HGB Conc 34.2 GM/DL (32-36); Mean Corpuscular Volume 88.5 FL (87-102); Mean Platelet Volume 10.4 FL (9.6-12.0); Monocytes % 7.9 % (1.7-12.7); Neutrophils % 77.1 % (38.7-73.9); Platelet Count 193 T/CUMM (130-400); Red Blood Count 5.29 MC/CUMM (3.8-5.5); Red Cell Distribution Width 13.5 % (9.3-17.3)
[2020-03-19 06:03] LABS: Albumin 2.4 G/DL (3.4-5.0); Bilirubin,Total 0.7 MG/DL (0.2-1.0); Calcium 9.1 MG/DL (8.5-10.1); Ferritin 1329.9 ng/ml (26-388); Osmolality,Calculated 269.1 MOS/KG (273-304); Total Protein 7.3 G/DL (6.4-8.3)
[2020-03-19 07:16] LABS: Sedimentation Rate-Westergren 39 MM/HR (0-20)
[2020-03-19] MEDS ORDERED: MENTHOL/ZINC OXIDE OINT 71 GM JAR TOP SCH (09:30)
[2020-03-19] MEDS: ZINC GLUCONATE 50 MG TABLET PO SCH (09:34)
[2020-03-19] MEDS: busPIRone 5 MG TABLET PO SCH ×2 (09:34→17:15)
[2020-03-19] MEDS: ASCORBIC ACID 500 MG TABLET PO SCH (09:34)
[2020-03-19] MEDS: FAMOTIDINE 20 MG TABLET PO SCH (09:34)
[2020-03-19] MEDS: CETIRIZINE 10 MG TABLET PO SCH (09:34)
[2020-03-19] MEDS: DEXAMETHASONE 4 MG/1 ML VIAL IV SCH (09:34)
[2020-03-19] MEDS: amLODIPine 10 MG TABLET PO SCH (09:34)
[2020-03-19] MEDS: CHOLECALCIFEROL 1,000 UNIT TABLET PO SCH (09:34)
[2020-03-19] MEDS: POLYETHYLENE GLYCOL POWDER 17 GM PACK PO SCH (10:36)
[2020-03-19] MEDS: ENOXAPARIN 60 MG/0.6 ML SYRINGE SUBCUT SCH (11:07)
[2020-03-19 16:08] VITALS: BP 121/68
== END 2020-03-19 18:35 | disposition home health service (06) | DRG 871 ==
LOC: N.ED 11:38 → SUATTDRO 15:32 → N.EDINP 15:32 → N.2E 17:05 → N.CC 03-07 15:11 → N.2E 03-14 14:00
PROVIDERS: ADMIT Hospitalist; ATTEND Hospitalist